=== PATIENT | male | born 2005 | race Two or more races ===

== ENCOUNTER 2024-09-28 21:29 | Emergency (ER) | payer OTHER ==
[~2024-09-28] VITALS: Ht 188 cm; Wt 60.6 kg
[2024-09-28 22:34] LABS: Basophils # (auto) 0 10 ^3/uL (0-0.2); Basophils % (auto) 0.2 % (0.0-2.0); Eosinophils # (auto) 0 10 ^3/uL (0-0.8); Hematocrit 45.9 % (41.0-53.0); Hemoglobin 15.2 g/dL (13.5-17.5); Lymphocytes # (auto) 1.1 10 ^3/uL (0.4-5.4); Lymphocytes % (auto) 7.1 % (10.0-50.0); Mean Corpuscular Hemoglobin 29.7 pg (28.0-32.0); Mean Corpuscular Hgb Conc. 33.1 g/dL (32.0-36.0); Mean Corpuscular Volume 89.5 fL (80.0-100.0); Monocytes # (auto) 0.7 10 ^3/uL (0-1.3); Monocytes % (auto) 4.3 % (0.0-12.0); Neutrophils # (auto) 13.5 10 ^3/uL (1.6-8.6); Neutrophils % (auto) 88.4 % (37.0-80.0); Platelet Count (auto) 381 10^3/uL (140-450); Red Blood Cells 5.12 10^6/uL (4.5-5.90); Red Cell Distribution Width 14.2 % (11.8-14.3); White Blood Cell 15.2 10^3/uL (4.4-10.8)
[2024-09-28 22:52] LABS: Alanine Aminotransferase 16 U/L (7-40); Albumin 4.6 g/dL (3.2-4.8); Alkaline Phosphatase 113 U/L (46-116); Anion Gap 6 (5-15); Aspartate Aminotransferase 21 U/L (13-40); Bilirubin, Total 0.9 mg/dL (0.2-1.0); Blood Urea Nitrogen 12 mg/dL (9-23); Calcium 10.1 mg/dL (8.7-10.4); Carbon Dioxide 28 mmol/L (20-31); Chloride 106 mmol/L (98-107); Glucose 143 mg/dL (74-106); Potassium 3.9 mmol/L (3.5-5.1); Sodium 140 mmol/L (136-145)
--- NOTE | 2024-09-28 22:57 | ED.PDOC ---
Musculoskeletal HPI Comments HPI: Poor Historian. 18-year-old male presents to emergency department for evaluation of right wrist pain injury status post snowboard accident at 8:30 p.m. today. Denies any head injury. He was wearing his helmet. Patient arrives with a right wrist deformity. Denies any pain in the elbow and the shoulder. Denies any head injury. Past Medcial History: Denies any Past Surgical History: Denies any REVIEW OF SYSTEMS: CONSTITUTIONAL: Denies acute: fever, diaphoresis, chills, generalized weakness. HEAD: Denies acute: headache, photophobia Eyes: Denies acute: Double vision, vision loss, eye pain, eye discharge. EARS: Denies acute: tinnitus, hearing loss, ear discharge, ear pain, THROAT: Denies acute: sore throat, swelling, difficulty swallowing , pain with swallowing, change in voice. NECK: Denies acute: neck pain, neck swelling, stiff neck. HEART: Denies acute : chest pain, palpitations, LUNGS: Denies acute: SOB, wheezing, cough, hemoptysis ABDOMEN: Denies acute: abdominal pain, Nausea, Vomiting, diarrhea, melena , hematemesis, hematochezia SKIN: Denies acute: rash, redness, lesions, itchiness. EXTREMITIES: Denies acute: calf pain, numbness, tingling, weakness, Denies acute: Low back pain. Neuro: Denies acute: focal neurological deficit, motor or sensory focal neurological deficit, tremors, seizure like activity, confusion, dizziness, change in mental status, loss of bowel or bladder function, cauda equina like symptoms. : Denies acute: dysuria, hematuria, flank pain, increase in urinary frequency. PSYCH: Denies acute: hallucination, suicidal ideation, homicidal ideation. PHYSICAL EXAM: General: Mild acute distress, awake and alert. Head: normocephalic, atraumatic. Neck: supple, trachea is midline, no swelling. Throat: Normal phonation. Eyes:, no erythema, no purulent discharge, no proptosis, no icterus. Heart: regular tachycardia, no significant murmur appreciated. Lungs: no apparent respiratory distress, Able to speak in full sentences. No wheezing, no rhonchi, no crackles. No stridors Clear to auscultation bilaterally. Abdomen: non tender to palpation, non distended, soft, no guarding, no rebound, + bowel sounds. Neuro: Awake, Alert, oriented to name, self, situation, follows commands GCS=15. Speech is normal. Skin: no petechia, no purpura, no cyanosis, non-pale, not jaundice. Lower extremities: --no - Pitting edema no deformity, no focal swelling, no calf TTP. Evaluation of the right wrist. There is noted deformity. Radial pulses palpable. Patient is neurovascularly intact in the affected extremity. Able to thumb oppose with all his fingers. Denies any numbness or tingling in the affected hand. No skin tenting. Decreased range of motion secondary to pain. Noted swelling at the wrist. Makes eye contact. moves all four extremities. Face: no apparent facial droop. No CVA tenderness to percussion bilaterally. Ambulating in the ED independently. Ears: Normal appearing TM b/l, Stroke: finger to nose cerebellar testing is intact. No pronator drift. Symmetrical importer exporter muscle strength b/l PERRLA, EOM-I CN 2-12 are grossly intact, Pedal pulses are palpable. No nystagmus. No nuchal rigidity, Kernig's sign, Brudzinski's sign, no meningeal signs. Chief Complaint: Upper Extremity Time Seen by MD: 22:20 Reviewed Notes: Nurses Notes, Allergies Information Source: Patient Mode of Arrival: Ambulatory Location: Right Was a procedure done? Was a procedure done?: Yes Sedation Sedation?: Yes Informed consent obtained: Yes Sedation start time: 00:55 Sedation end time: 01:25 Sedation total time: 30 minutes Reduction Indication: Fracture (Right wrist) Sedation: Consents obtained, Sedation as ordered Intra-articular anesthetic janet: No Nerve Block: Other Post-reduction x-ray show: Good Alignment Informed consent obtained: Yes Risks/benefits/alt described: Yes Notes Closed reduction of right wrist with splinting under sedation with 100mcg of fentanyl X-Ray, Labs, Meds, VS Vital Signs Date Time Temp Pulse Resp B/P (MAP) Pulse Ox O2 Delivery O2 Flow Rate FiO2 09/29/24 03:21 Nasal Cannula* 2 28 09/29/24 03:00 89 15 129/89 (102) 99 09/29/24 02:20 95 21 99 4.0 100 16 100 113 100 09/29/24 02:00 98 21 116/68 (84) 97 1/10/25 01:00 75 96 Nasal Cannula* 2 28 09/28/24 22:20 98.2 108 18 116/81 (93) 98 Lab Test 09/28/24 22:26 Range/Units White Blood Count 15.2 H 4.4-10.8 10^3/uL Red Blood Count 5.12 4.5-5.90 10^6/uL Hemoglobin 15.2 13.5-17.5 g/dL Hematocrit 45.9 41.0-53.0 % Mean Corpuscular Volume 89.5 80.0-100.0 fL Mean Corpuscular Hemoglobin 29.7 28.0-32.0 pg Mean Corpuscular Hemoglobin Concent 33.1 32.0-36.0 g/dL Red Cell Distribution Width 14.2 11.8-14.3 % Platelet Count 381 140-450 10^3/uL Mean Platelet Volume 7.4 6.9-10.8 fL Neutrophils (%) (Auto) 88.4 H 37.0-80.0 % Lymphocytes (%) (Auto) 7.1 L 10.0-50.0 % Monocytes (%) (Auto) 4.3 0.0-12.0 % Eosinophils (%) (Auto) 0.0 0.0-7.0 % Basophils (%) (Auto) 0.2 0.0-2.0 % Neutrophils # (Auto) 13.5 H 1.6-8.6 10 ^3/uL Lymphocytes # (Auto) 1.1 0.4-5.4 10 ^3/uL Monocytes # (Auto) 0.7 0-1.3 10 ^3/uL Eosinophils # (Auto) 0 0-0.8 10 ^3/uL Basophils # (Auto) 0 0-0.2 10 ^3/uL Nucleated Red Blood Cells 0.0 % Sodium Level 140 136-145 mmol/L Potassium Level 3.9 3.5-5.1 mmol/L Chloride Level 106 98-107 mmol/L Carbon Dioxide Level 28 20-31 mmol/L Anion Gap 6 5-15 Blood Urea Nitrogen 12 9-23 mg/dL Creatinine 1.00 0.700-1.30 mg/dL Glomerular Filtration Rate Calc 111 >90 mL/min BUN/Creatinine Ratio 12.0 10.0-20.0 Serum Glucose 143 H 74-106 mg/dL Calcium Level 10.1 8.7-10.4 mg/dL Total Bilirubin 0.9 0.2-1.0 mg/dL Aspartate Amino Transferase (AST) 21 13-40 U/L Alanine Aminotransferase (ALT) 16 7-40 U/L Alkaline Phosphatase 113 46-116 U/L Total Protein 7.0 5.7-8.2 g/dL Albumin 4.6 3.2-4.8 g/dL Current Medications Medications (Trade) Dose Ordered Sig/Yong Route Start Time Stop Time Status Last Admin Sodium Chloride 1,000 ml @ 1,000 mls/hr Q1H ONCE IV 09/29/24 01:00 09/29/24 01:59 DC 09/29/24 01:00 PROCEDURE(s): RWRI - R WRIST 3+ VIEW XRAY REASON: Pain and deformity ORDER NUMBER(s): [id number], ACCESSION NUMBER(s): [id number] INDICATION: Pain and deformity TECHNIQUE: 4 radiographic views of the right wrist were obtained. COMPARISON: None Findings/ IMPRESSION: Displaced mildly angulated fracture of the distal radius and avulsion fracture of the ulnar styloid process. There is adjacent soft tissue edema. CHEST RADIOGRAPH Indication: Poss preop Technique: Single frontal view of the chest was obtained Comparison: None FINDINGS: Lines and Tubes: None Lungs: Clear Pleura: No effusion. No pneumothorax. Cardiomediastinal contours: Unremarkable Bones: Unremarkable IMPRESSION: Clear lungs. Time of 1ST Reevaluation: 03:36 (Case discussed on the phone with the orthopedic doctor on-call. He reviewed the images pre and postreduction and is very satisfied with the reduction and recommends outpatient follow up. No further recommendations. Dr. Shelley. ) Reevaluation 1ST: Improved Patient Education/Counseling: Diagnosis, Treatment Family Education/Counseling: Diagnosis, Treatment Departure 1 Departure Time of Disposition: 02:41 Impression: Primary Impression: Right wrist fracture Additional Impression: Aftercare for cast or splint check or change Disposition: 01 HOME / SELF CARE / HOMELESS Condition: Stable Additional Instructions: Additional discharge instructions: You MUST follow-up with your primary care/family doctor in 1 to 2 days. If you are unable to see your primary care/family doctor, please return to our emergency room for re-assessment and re-evaluation in 1 to 2 days. Return to the emergency room here in our facility or to the nearest ER [facility] if your symptoms change or worsen. CONSULTATIONS: you MUST Follow-up for consultation as soon as possible with: -orthopedic surgery in 1-2 days. Please call for appointment. Dr. Shelley. You MUST call the consultants office yourself to make an appointment. You may need to arrange that through your insurance and/or your primary/family doctor. If you are unable to see the technical healthcare consultant in 1 to 2 days, you must return to our emergency room (or any other ER of your choice) for re-assessment and re- evaluation. Adequate fluid hydration. do not operate any machinery in the next 24 hours because of your sedation. no lifting until cleared by ortho first. Below is a copy of your radiological report for follow up: [place] [address] Ph: [phone] DIAGNOSTIC IMAGING Diagnostic Imaging Report : [id number] Signed PATIENT: AMIRAH MITTAL ACCT: [id number] UNIT: [id number] : 2005 LOC: ER ROOM / BED: / AGE / SEX: 18 / M ADM STATUS: REG ER SERVICE 14 ORDERING PHYSICIAN: ADWOA ENGLISH DO PROCEDURE(s): RWRI - R WRIST 3+ VIEW XRAY REASON: Pain and deformity ORDER NUMBER(s): [id number], ACCESSION NUMBER(s): [id number] INDICATION: Pain and deformity TECHNIQUE: 4 radiographic views of the right wrist were obtained. COMPARISON: None Findings/ IMPRESSION: Displaced mildly angulated fracture of the distal radius and avulsion fracture of the ulnar styloid process. There is adjacent soft tissue edema. ATED BY: LIZ GARCIA DO DICTATED DATE/TIME: 09/28/242308 SIGNED BY: LIZ GARCIA DO SIGNED DATE/TIME: 09/28/242308 CC: [place] [address] Ph: [phone] DIAGNOSTIC IMAGING Diagnostic Imaging Report : [id number] Signed PATIENT: AMIRAH MITTAL ACCT: [id number] UNIT: [id number] : 2005 LOC: ER ROOM / BED: / AGE / SEX: 18 / M ADM STATUS: REG ER SERVICE 1 ORDERING PHYSICIAN: ADWOA ENGLISH DO PROCEDURE(s): RWRI2 - R WRIST 2 VIEW XRAY REASON: S/P wrist reduction xray ORDER NUMBER(s): [id number], ACCESSION NUMBER(s): [id number] Examination: RWRI2 Clinical Indication: S/P wrist reduction Comparison: None. Technique: Three views of right wrist were performed. Findings: Acute non-displaced fracture of the metaphysis of the radius is seen. Displaced fracture of styloid process of ulna is seen. The carpal bones are well aligned. The joint spaces are well preserved. The soft tissues are unremarkable. Impression: 1. Acute non-displaced fracture of the metaphysis of the radius is seen. 2. Displaced fracture of styloid process of ulna. Electronically Signed 09/29/2024 03:07 Sandy Panchal ATED BY: ELDA OLVERA MD DICTATED DATE/TIME: 09/29/24306 SIGNED BY: ELDA OLVERA MD SIGNED DATE/TIME: 09/29/24306 CC: Discharged With: Self, Relative (Father) I personally scribed for ADWOA ENGLISH DO ([email or web address]) on 09/29/24 at 01:23. Elec tronically submitted by Sebastián Arreola ([email or web address]). I personally scribed for ADWOA ENGLISH DO ([email or web address]) on 09/29/24 at 02:48. E lectronically submitted by Sebastián Arreola ([email or web address]). ADWOA ENGLISH DO Sep 28, 2024 22:57
--- NOTE | 2024-09-28 23:09 | DVH ---
CHEST RADIOGRAPH Indication: Poss preop Technique: Single frontal view of the chest was obtained Comparison: None FINDINGS: Lines and Tubes: None Lungs: Clear Pleura: No effusion. No pneumothorax. Cardiomediastinal contours: Unremarkable Bones: Unremarkable IMPRESSION: Clear lungs.
--- NOTE | 2024-09-28 23:11 | DVH ---
INDICATION: Pain and deformity TECHNIQUE: 4 radiographic views of the right wrist were obtained. COMPARISON: None Findings/ IMPRESSION: Displaced mildly angulated fracture of the distal radius and avulsion fracture of the ulnar styloid p rocess. There is adjacent soft tissue edema.
[2024-09-29 01:00] VITALS: PULSE 75; O2SAT 96
[2024-09-29] MEDS: fentaNYL CITRATE 100 MCG/2 ML VL IV ONE (01:00)
[2024-09-29] MEDS: SODIUM CHLORIDE 0.9% 1,000 ML IV ONE (01:00)
[2024-09-29] MEDS: KETAMINE 50mg/ML 10ml Vial (500mg/10ml) IV ONE (01:00)
[2024-09-29 03:00] VITALS: BP 129/89; PULSE 89; RESP 15; O2SAT 99
--- NOTE | 2024-09-29 03:08 | DVH ---
Examination: RWRI2 Clinical Indication: S/P wrist reduction Comparison: None. Technique: Three views of right wrist were performed. Findings: Acute non-displaced fracture of the metaphysis of the radius is seen. Displaced fracture of styloid process of ulna is seen. The carpal bones are well aligned. The joint spaces are well preserved. The soft tissues are unremarkable. Impression: 1. Acute non-displaced fracture of the metaphysis of the radius is seen. 2. Displaced fracture of styloid process of ulna. Electronically Signed 09/29/2024 03:07 Sandy Panchal
--- NOTE | 2024-09-29 07:39 | ECG ---
[facility] Test Date: 2024-09-28 Test Time: 22:22:41 Pat Name: AMIRAH MITTAL Department: ED Room: Gender: M Senior Environmental Practice Leader: NAYE : 2005 Requested By: ADWOA ENGLISH Order Number: [id number] Reading MD: Zaheer Johnson Measurements Intervals Purchase Rate: 102 P: 79 NC: 143 QRS: 31 QRSD: 98 T: 79 QT: 311 QTc: 406 Interpretive Statements Sinus tachycardia LAE, consider biatrial enlargement RSR' in V1 or V2, right VCD or RVH Nonspecific T abnrm, anterolateral leads ST elev, probable normal early repol pattern Baseline wander in lead(s) V3 Electronically Signed On 09-29-2024 13:13:57 PST by Zaheer Johnson Please click the below link to view image of tracing.
== END 2024-09-29 04:30 | disposition home or self-care (01) ==
LOC: ER 21:29
DX: S52.511A Displaced fracture of right radial styloid process, initial encounter for closed fracture (principal); Z79.899 Other long term (current) drug therapy; X58.XXXA Exposure to other specified factors, initial encounter; Y93.23 Activity, snow (alpine) (downhill) skiing, snowboarding, sledding, tobogganing and snow tubing; Y92.89 Other specified places as the place of occurrence of the external cause; Y99.8 Other external cause status
CPT/HCPCS: 25605; 36415; 71045; 73100; 73110; 80053; 85025; 93005; 96360; 99152; 99153; 99285; J7030